=== PATIENT | female | born 2000 | race African-American/Black ===

== ENCOUNTER 2023-09-09 06:40 | Emergency (ER) | payer OTHER ==
[~2023-09-09] VITALS: Ht 152.4 cm; Wt 70.0 kg
[2023-09-09 06:46] VITALS: TEMP 98.2
[2023-09-09] MEDS ORDERED: IBUP-1492 PO (06:50)
[2023-09-09] MEDS ORDERED: ACET-3385 PO (06:50)
[2023-09-09] MEDS ORDERED: KETOROLAC TROMETHAMINE 30 MG/ML VIAL IM ONE (07:00)
[2023-09-09] MEDS ORDERED: ACETAMINOPHEN 325 MG TABLET PO ONE (07:00)
[2023-09-09 07:14] VITALS: BP 136/87; PULSE 78; RESP 18
== END 2023-09-09 07:17 | disposition home or self-care (01) ==
LOC: EMS 06:40
DX: M79.644 Pain in right finger(s) (principal)
CPT/HCPCS: 99283; 96372; J1885

== ENCOUNTER 2024-02-16 07:13 | Emergency (ER) | payer OTHER ==
[~2024-02-16] VITALS: Ht 154.9 cm; Wt 69.1 kg
[~2024-02-16 07:13] MED LIST: ACET-3385 PO; IBUP-1492 PO
[2024-02-16 07:43] VITALS: TEMP 97.3
[2024-02-16 08:21] LABS: APPEARANCE,URINE HAZY (CLEAR); BILIRUBIN,URINE NEGATIVE (NEGATIVE); GLUCOSE, URINE (UA) NEGATIVE (NEGATIVE); KETONES,URINE NEGATIVE (NEGATIVE); LEUKOCYTE ESTERASE ,URINE SMALL (NEGATIVE); NITRATE,URINE NEGATIVE (NEGATIVE); OCCULT BLOOD,URINE LARGE (NEGATIVE); PH,URINE 6.5 (5.0-8.0); PROTEIN,URINE 30-70 mg/dL (NEGATIVE); SPECIFIC GRAVITIY, URINE 1.009 (1.003-1.030); UROBILINOGEN,URINE <=1.0 mg/dL (<=1.0)
[2024-02-16 08:24] LABS: ANION GAP 8 mmol/L (8-16); CALCIUM, TOTAL 8.2 mg/dL (8.8-10.5); CARBON DIOXIDE 27 mmol/L (22-29); CHLORIDE 105 mmol/L (98-107); GLOMERULAR FILTR. RATE CALC > 60 mL/min (>60); GLUCOSE,RANDOM 94 mg/dL (70-110); POTASSIUM 3.7 mmol/L (3.5-5.1); SODIUM SERUM 140 mmol/L (136-145); UREA NITROGEN, BLOOD 8 mg/dL (7-18)
[2024-02-16 08:26] LABS: COLOR,URINE RED (YELLOW)
[2024-02-16 08:27] LABS: RBC,URINE Full Field /HPF (0-2)
[2024-02-16 08:28] LABS: BACTERIA,URINE None Seen /HPF (None Seen)
[2024-02-16 08:30] LABS: ALANINE AMINOTRANSFERASE 33 U/L (12-78); ALBUMIN 3.5 g/dL (3.4-5.0); ALKALINE PHOSPHATASE 57 U/L (46-116); ASPARTATE AMINOTRANSFERASE 15 U/L (15-37); BILIRUBIN,TOTAL 0.2 mg/dL (0.1-1.0); LIPASE 40 U/L (16-77)
[2024-02-16 08:33] LABS: BASOPHILS % (AUTO) 0.8 % (0.0-2.0); EOSINOPHILS % (AUTO) 10.2 % (1.0-6.0); HEMATOCRIT 37.8 % (36-46); HEMOGLOBIN 12.8 g/dL (12.0-16.0); MEAN CORPUSCULAR HEMOGLOBIN 30.1 pg (26.0-34.0); MEAN CORPUSCULAR HGB CONC 33.9 G/dL (31.0-37.0); MEAN CORPUSCULAR VOLUME 89 fL (80-100); MONOCYTES # (AUTO) 0.4 K/uL (0.1-1.0); MONOCYTES % (AUTO) 6.7 % (2.0-9.0); NEUTROPHILS # (AUTO) 2.4 K/uL (1.8-7.7); NEUTROPHILS % (AUTO) 45.3 % (40.0-70.0); PLATELET COUNT (AUTO) 309 K/uL (150-450); RED BLOOD CELL COUNT(AUTO) 4.26 MIL/uL (4.00-5.20); RED CELL DISTRIBUTION WIDTH 12.9 % (11.5-14.5); WHITE BLOOD COUNT (AUTO) 5.3 K/uL (4.5-11.0)
[2024-02-16] MEDS: ACETAMINOPHEN 500 MG TABLET PO ONE (08:52)
[2024-02-16] MEDS ORDERED: IOHEXOL 350 MG/ML 100 ML VIAL ONE (09:11)
[2024-02-16] MEDS ORDERED: SODIUM CHLORIDE 0.9% 100 ML ONE (09:11)
[2024-02-16] MEDS ORDERED: CEPH-558 PO (11:18)
[2024-02-16] MEDS: CEPHALEXIN MONOHYDRATE 500 MG CAPSULE PO ONE (11:18)
[2024-02-16 14:10] VITALS: BP 118/72; PULSE 78; RESP 16
== END 2024-02-16 14:11 | disposition home or self-care (01) ==
LOC: EMS 07:22
DX: N94.6 Dysmenorrhea, unspecified (principal); N39.0 Urinary tract infection, site not specified; E28.2 Polycystic ovarian syndrome
CPT/HCPCS: 99285; 74177; 76830; 76856; 80053; 81001; 83690; 84703; 85025; 36415; 87086; 87186; Q9967; J7050